=== PATIENT | male | born 1950 | race Caucasian/White ===

== ENCOUNTER 2016-09-17 11:35 | Emergency (ER) | payer MEDICARE, OTHER ==
[2016-09-17 12:21] LABS: BASOPHIL 0.4 % (0-2); EOSINOPHIL 3.8 % (0-7); HCT 45.7 % (42.0-52.0); HGB 15.5 g/dl (13.2-18.0); LYMPHOCYTE 12.4 % (15-48); MCH 29.6 pg (25.0-31.0); MCHC 33.9 g/dL (32.0-36.0); MCV 87.2 fL (78.0-100.0); MONOCYTE 9.2 % (0-12); MPV 9.2 fL (6.0-9.5); PLT 670 K/uL (150-400); RBC 5.24 M/uL (4.70-6.00); RDW 14.9 % (11.5-14.0); WBC 16.9 K/uL (4.0-10.5)
[2016-09-17 12:25] LABS: INR 0.97 (0.9-1.2); PROTHROMBIN TIME 12.5 SECONDS (11.7-14.0); PTT 35.3 SECONDS (23.2-31.4)
[2016-09-17 12:28] LABS: BILIRUBIN NEGATIVE (NEGATIVE); BLOOD NEGATIVE Ery/uL (NEGATIVE); CLARITY CLEAR (CLEAR); COLOR YELLOW (YELLOW); GLUCOSE (U) NORMAL (NORMAL); KETONE (U) NEGATIVE (NEGATIVE); LEUKOCYTES NEGATIVE Leu/uL (NEGATIVE); NITRITE NEGATIVE (NEGATIVE); PROTEIN NEGATIVE (NEGATIVE); UROBILINOGEN 0.2 mg/dL (0.2-1.0); pH 5.5 (5.0-9.0)
[2016-09-17 12:33] LABS: NEUTROPHIL 74.2 % (41-80)
[2016-09-17 12:37] LABS: ALBUMIN 4.4 g/dL (3.4-4.8); BILIRUBIN - TOTAL 0.4 mg/dL (0.1-1.0); CREATININE 1.5 mg/dL (0.7-1.2); GLOBULIN (CALCULATION) 4.1 g/dL (2.2-4.2); POTASSIUM 2.7 mmol/L (3.5-5.1); TOTAL PROTEIN 8.5 g/dL (6.4-8.3)
[2016-09-17 12:39] LABS: TROPONIN T < 0.010 ng/mL
[2016-09-17 12:40] LABS: PRO-BNP 183 pg/mL (0-125)
[2016-09-17 13:54] LABS: LACTIC ACID 2.1 mmol/L (0.5-2.2)
== END 2016-09-17 15:50 | disposition home or self-care (01) ==
LOC: FER 11:35
PROVIDERS: Emergency Medicine
DX: N17.9 Acute kidney failure, unspecified (principal); E87.6 Hypokalemia; E86.0 Dehydration; E87.2 Acidosis; I10 Essential (primary) hypertension; K21.9 Gastro-esophageal reflux disease without esophagitis; J44.9 Chronic obstructive pulmonary disease, unspecified; F17.210 Nicotine dependence, cigarettes, uncomplicated
CPT/HCPCS: 36415; 36600; 71010; 80053; 81003; 82803; 83605; 83880; 84484; 85025; 85610; 85730; 87040; 93005; 94640; J2405; J2930